=== PATIENT | female | born 1995 | race Two or more races ===

== ENCOUNTER 2020-09-05 22:12 | Emergency (ER) | payer SELFPAY ==
[~2020-09-05] VITALS: Ht 162.6 cm; Wt 75.0 kg
[2020-09-05 22:28] VITALS: BP 112/57
--- NOTE | 2020-09-05 22:39 | NUR ---
pt present to the ed with open surgical sites under breast from breast implants. pt states she had her surgery on 08/11/20 and the stitches were removed 2 weeks after. pt states that her bra rubs over site and the wound has not been healing. pt in gown, resting on gurney, and placed on continuous monitoring, erp at bedside.
--- NOTE | 2020-09-05 23:23 | NUR ---
Patient given discharge instructions and they have confirmed that they understand the instructions. Patient ambulatory with steady gait.
== END 2020-09-05 23:25 | disposition home or self-care (01) ==
LOC: ED 23:00
DX: T81.31XA Disruption of external operation (surgical) wound, not elsewhere classified, initial encounter (principal); Y82.9 Unspecified medical devices associated with adverse incidents
CPT/HCPCS: 99283